=== PATIENT | male | born 1960 | race Caucasian/White ===

== ENCOUNTER 2022-11-09 09:00 | Outpatient (NON) | payer OTHER, SELFPAY | END 2022-11-09 09:01 | disposition home or self-care (01) | LOC: ANHLAB 11-10 07:45 | PROVIDERS: PCP Family Medicine; Visit Provider Internal Medicine Gastroenterology | DX: D12.0 Benign neoplasm of cecum (principal); D12.5 Benign neoplasm of sigmoid colon; Z80.0 Family history of malignant neoplasm of digestive organs | CPT/HCPCS: 88305 ==

== ENCOUNTER 2022-11-09 10:49 | Day surgery (SDC) | payer OTHER, SELFPAY ==
[2022-10-27 12:19] VITALS: BMI 28.2
--- NOTE | 2022-11-08 09:45 | P.PNAN_ITS ---
Anes - Initial Pre Proc Eval Procedure: Operation Date: 11/09/22 13:00 Proposed Procedures p Screening Colonoscopy - Derek Santiago MD Date/Time: 11/08/22 09:45 Surgeon: Derek Santiago MD Pre Op Diagnosis: HX Colon Polyps, Family HX Colon CA, Screening Patient Data Age: 62 Gender: M Height: 1.83 m Weight: 94.5 kg Allergies Allergy/AdvReac Type Severity Reaction Status Date / Time No Known Allergies Allergy Unknown Verified 11/09/22 11:53 Home Medications Medication Instructions Recorded Confirmed Type multivitamin with minerals (Men's 1 tablet PO DAILY 04/13/20 11/09/22 History One Daily tablet) ascorbate calcium (vitamin C) 500 500 mg PO DAILY 06/06/22 11/09/22 History mg tablet cholecalciferol (vitamin D3) 50 50 mcg PO DAILY 06/06/22 11/09/22 History mcg (2,000 unit) capsule vitamin B complex (B 1 tablet PO DAILY 06/06/22 11/09/22 History Complex-Vitamin B12 tablet) sodium,potassium,mag sulfates 17.5 See Rx Instructions PO .COMPLEX 09/18/22 11/09/22 Rx gram-3.13 gram-1.6 gram oral soln #354 mL (Suprep Bowel Prep Kit) sildenafil 50 mg tablet (Viagra) 50 mg PO DAILY PRN sexual activity 10/27/22 11/09/22 Rx #10 tabs Patient hx anesthesia problems: none Family hx anesthesia problems: none Results Review: All pre-operative results and documents have been reviewed as part of the pre- operative evaluation. [facility] Past Medical History Medical History Dyslipidemia Erectile dysfunction History of stroke Hypogonadism in male Stroke 04/2006 Surgical History Surgical History No pertinent past surgical history Family History Family History Father Family history of cardiovascular disease Carcinoma of colon Social History Social History Smoking packs per day: 1 Smoking cigarettes per day: 20.0 Years smoked: 30 Smoking pack-years: 30.00 Smoking status: Current every day smoker Tobacco type: cigarettes Alcohol intake: unknown Substance use type: does not use Living arrangements: alone Spiritual care concerns: No Anes - Eval Final PreProcedure Day of Procedure 11/08/22 09:45 Patient weight: overweight Heart: regular rate and rhythm Lungs: clear to auscultation Airway: Mallampati scale class II Neurological: alert and oriented Last oral intake: >/= 8 hours ASA classification: III Emergent: no Anesthetic plan: proceed Anesthesia type and monitoring: general GIVS and standard monitoring Results Review: All pre-operative results and documents have been reviewed as part of the pre- operative evaluation. Informed Consent: The patient's anesthetic plan and its attendant risks and benefits were discussed with the patient/family/POA. Questions were solicited and answers provided to the satisfaction of the patient/family/POA.
[2022-11-09 11:50] VITALS: BP 146/85; PULSE 75; RESP 20; TEMP 36.6; O2SAT 97
[2022-11-09] MEDS: LACTATED RINGERS 1,000 ML 150 ML IV CONT (12:04)
--- NOTE | 2022-11-09 12:45 | PM.HPGS ---
History of Present Illness History of Present Illness Consent: Risks, benefits, and alternatives have been discussed and questions answered. Patient agrees to proceed with procedure. Chief complaint: HX Colon Polyps, Family HX Colon CA, Screening Narrative: Babar Friend is a 62 year old male presents for screening colonoscopy. Patient has of personal history of colon polyps most recently 2017. He has had polyps on several previous occasions. Family history is significant his father and several paternal uncles have had colon cancer. Patient presents today for follow-up colonoscopy. He reports his current weight appetite bowel movements are normal. Review of Systems Review of Systems: Review of systems noncontributory. [facility] Past Medical History Medical History Dyslipidemia Erectile dysfunction History of stroke Hypogonadism in male Stroke 04/2006 Surgical History Surgical History No pertinent past surgical history Family History Family History Father Family history of cardiovascular disease Carcinoma of colon Social History Social History Smoking packs per day: 1 Smoking cigarettes per day: 20.0 Years smoked: 30 Smoking pack-years: 30.00 Smoking status: Current every day smoker Tobacco type: cigarettes Alcohol intake: unknown Substance use type: does not use Living arrangements: alone Spiritual care concerns: No Meds Home Medications and Allergies Home Medications Medication Instructions Recorded Confirmed Type multivitamin with minerals (Men's 1 tablet PO DAILY 04/13/20 11/09/22 History One Daily tablet) ascorbate calcium (vitamin C) 500 500 mg PO DAILY 06/06/22 11/09/22 History mg tablet cholecalciferol (vitamin D3) 50 50 mcg PO DAILY 06/06/22 11/09/22 History mcg (2,000 unit) capsule vitamin B complex (B 1 tablet PO DAILY 06/06/22 11/09/22 History Complex-Vitamin B12 tablet) sodium,potassium,mag sulfates 17.5 See Rx Instructions PO .COMPLEX 09/18/22 11/09/22 Rx gram-3.13 gram-1.6 gram oral soln #354 mL (Suprep Bowel Prep Kit) sildenafil 50 mg tablet (Viagra) 50 mg PO DAILY PRN sexual activity 10/27/22 11/09/22 Rx #10 tabs Allergies Allergy/AdvReac Type Severity Reaction Status Date / Time No Known Allergies Allergy Unknown Verified 11/09/22 11:53 Vital Signs Vital Signs - 24 hr 11/09/22 11:50 Temperature 97.9 F Pulse Rate 75 Respiratory Rate 20 Blood Pressure 146/85 H Pulse Oximetry 97 Oxygen Delivery Room Air Exam Narrative: Physical exam reveals patient to be alert. Vital signs stable. HEENT exam is unremarkable. Patient is anicteric. Lungs are clear to auscultation and percussion. Heart is without murmur or extra sounds. Abdomen bowel sounds are present soft nontender with no organomegaly. Digital external rectal exam is normal. Assessment and Plan Assessment and plan (1) History of colon polyps: Code(s): Z86.010 - Personal history of colonic polyps Status: Acute Assessment and Plan: Patient has had colon polyps on several previous colonoscopies. Plan for continued surveillance every 3-5 years. (2) Family history of colon cancer in father: Code(s): Z80.0 - Family history of malignant neoplasm of digestive organs Status: Acute Assessment and Plan: Patient's father had colon cancer as did several paternal uncles. Plan for surveillance colonoscopy at least every 5 years.
[2022-11-09 13:22] VITALS: BP 99/87; PULSE 68; RESP 16; O2SAT 96
[2022-11-09 13:32] VITALS: BP 110/75; PULSE 68; RESP 16; O2SAT 97
--- NOTE | 2022-11-09 13:33 | SUR.PHASEII ---
PT AWAKE AND ALERT. DRINKING WATER. DENIES PAIN.
[2022-11-09 13:42] VITALS: BP 114/74; PULSE 67; RESP 16; O2SAT 97
--- NOTE | 2022-11-09 14:28 | WPDANESPN ---
Anes - Prog Note Post-Op Date/Time: 11/09/22 14:28 Cardiovascular status: normal Respiratory status: normal Airway patency: baseline Mental status: baseline Post-Op hydration status: normal Vital Signs: Last Vital Signs Temp 36.6 C 11/09/22 11:50 Pulse 67 11/09/22 13:42 Resp 16 11/09/22 13:42 BP 114/74 11/09/22 13:42 Pulse Ox 97 11/09/22 13:42 O2 Del Method Room Air 11/09/22 13:42 Pain Score (VAS): 0 I/O: Intake & Output 11/08/22 11/09/22 11/09/22 23:59 07:59 15:59 Intake Total 750 Balance 750 Post-procedural complaints: none Patient Feedback: Patient satisfied with anesthetic care. Other Findings: Patient vital signs back to baseline. Patient denies nausea and vomiting. Patient's pain under control. Patient OK for discharge.
== END 2022-11-09 14:00 | disposition home or self-care (01) ==
PROVIDERS: PCP Family Medicine; Visit Provider Internal Medicine Gastroenterology
PROC: 0DJD8ZZ Inspection of Lower Intestinal Tract, Via Natural or Artificial Opening Endoscopic (ICD-10-PCS; CPT 45378; principal; 2022-11-09 13:00)
DX: Z86.010 Personal history of colon polyps (principal)
CPT/HCPCS: 45385

== ENCOUNTER 2023-08-09 07:00 | Outpatient (NON) | payer OTHER, SELFPAY | END 2023-08-09 07:01 | disposition home or self-care (01) | PROVIDERS: PCP Family Medicine; Visit Provider Internal Medicine Gastroenterology | DX: D12.4 Benign neoplasm of descending colon (principal); K63.5 Polyp of colon | CPT/HCPCS: 88305 ==

== ENCOUNTER 2023-08-09 09:34 | Day surgery (SDC) | payer OTHER, SELFPAY ==
[2023-07-24 13:34] VITALS: BMI 27.8
--- NOTE | 2023-08-09 08:23 | P.PNAN_ITS ---
Anes - Initial Pre Proc Eval Procedure: Operation Date: 08/09/23 13:30 Proposed Procedures p Colonoscopy - Derek Santiago MD Date/Time: 08/09/23 08:23 Surgeon: Derek Santiago MD Pre Op Diagnosis: Family History of Colon Cancer, HX of Colon Polyps Patient Data Age: 63 Gender: M Height: 1.83 m Weight: 93 kg Allergies Allergy/AdvReac Type Severity Reaction Status Date / Time No Known Allergies Allergy Unknown Verified 08/09/23 12:20 Home Medications Medication Instructions Recorded Confirmed Type multivitamin with minerals (Men's 1 tablet PO DAILY 04/13/20 08/09/23 History One Daily tablet) ascorbate calcium (vitamin C) 500 500 mg PO DAILY 06/06/22 08/09/23 History mg tablet cholecalciferol (vitamin D3) 50 50 mcg PO DAILY 06/06/22 08/09/23 History mcg (2,000 unit) capsule vitamin B complex (B 1 tablet PO DAILY 06/06/22 08/09/23 History Complex-Vitamin B12 tablet) sildenafil 50 mg tablet (Viagra) 50 mg PO DAILY PRN sexual activity 06/18/23 08/09/23 Rx #10 tabs Patient hx anesthesia problems: none Family hx anesthesia problems: none Results Review: All pre-operative results and documents have been reviewed as part of the pre-operative evaluation. [facility] Past Medical History Medical History Dyslipidemia Erectile dysfunction History of stroke (~04/2006) Hypogonadism in male Surgical History Surgical History History of tooth extraction Family History Family History Father Family history of cardiovascular disease Carcinoma of colon Social History Social History Smoking packs per day: 1 Smoking cigarettes per day: 20.0 Years smoked: 40 Smoking pack-years: 40.00 Smoking status: Heavy tobacco smoker Tobacco type: cigarettes Alcohol intake: former Substance use: never Substance use type: does not use Lack of Transportation: No Lack of Food: Never True Current Housing: I Have Housing Concerned About Future Housing: No Difficulty Paying Gas/Electric Bills: No Difficulty Paying for Meds: No Currently Unemployed: No Education: Bachelor's Degree Difficulty w/ Childcare or Family Care: No Living arrangements: alone Occupation/Education: occupation Gender identity (if verbalized by the patient): Male Spiritual care concerns: No Agree to blood products: Yes Anes - Eval Final PreProcedure Day of Procedure 08/09/23 08:23 Patient weight: overweight Heart: regular rate and rhythm Lungs: clear to auscultation Airway: Mallampati scale class II Neurological: alert and oriented Last oral intake: >/= 8 hours ASA classification: III Emergent: no Anesthetic plan: proceed Anesthesia type and monitoring: general GIVS and standard monitoring Results Review: All pre-operative results and documents have been reviewed as part of the pre- operative evaluation. Informed Consent: The patient's anesthetic plan and its attendant risks and benefits were discussed with the patient/family/POA. Questions were solicited and answers provided to the satisfaction of the patient/family/PO
[2023-08-09 12:22] VITALS: BP 121/79; PULSE 85; RESP 18; TEMP 36.9; O2SAT 99; BMI 26.4
[2023-08-09] MEDS: LACTATED RINGERS 1,000 ML 150 ML IV CONT (12:27)
--- NOTE | 2023-08-09 13:04 | PM.HPGS ---
History of Present Illness History of Present Illness Consent: Risks, benefits, and alternatives have been discussed and questions answered. Patient agrees to proceed with procedure. Chief complaint: Family History of Colon Cancer, HX of Colon Polyps Narrative: Babar Friend is a 63 year old male Presents for colonoscopy. Patient has a history of recurrent polyps in the past. Patient found to have a rather large cecal colon polyp removed colon . patient presents today for follow-up to ensure complete resection of this polyp. Patient reports that his current weight appetite and bowel movements are normal. He denies abdominal pain. He has had no bleeding. History is significant father and 2 uncles have had colon cancer. Review of Systems Review of Systems: Review of systems is noncontributory. [facility] Past Medical History Medical History Dyslipidemia Erectile dysfunction History of stroke (~04/2006) Hypogonadism in male Surgical History Surgical History History of tooth extraction Family History Family History Father Family history of cardiovascular disease Carcinoma of colon Social History Social History Smoking packs per day: 1 Smoking cigarettes per day: 20.0 Years smoked: 40 Smoking pack-years: 40.00 Smoking status: Heavy tobacco smoker Tobacco type: cigarettes Alcohol intake: former Substance use: never Substance use type: does not use Lack of Transportation: No Lack of Food: Never True Current Housing: I Have Housing Concerned About Future Housing: No Difficulty Paying Gas/Electric Bills: No Difficulty Paying for Meds: No Currently Unemployed: No Education: Bachelor's Degree Difficulty w/ Childcare or Family Care: No Living arrangements: alone Occupation/Education: occupation Gender identity (if verbalized by the patient): Male Spiritual care concerns: No Agree to blood products: Yes Meds Home Medications and Allergies Home Medications Medication Instructions Recorded Confirmed Type multivitamin with minerals (Men's 1 tablet PO DAILY 04/13/20 08/09/23 History One Daily tablet) ascorbate calcium (vitamin C) 500 500 mg PO DAILY 06/06/22 08/09/23 History mg tablet cholecalciferol (vitamin D3) 50 50 mcg PO DAILY 06/06/22 08/09/23 History mcg (2,000 unit) capsule vitamin B complex (B 1 tablet PO DAILY 06/06/22 08/09/23 History Complex-Vitamin B12 tablet) sildenafil 50 mg tablet (Viagra) 50 mg PO DAILY PRN sexual activity 06/18/23 08/09/23 Rx #10 tabs Allergies Allergy/AdvReac Type Severity Reaction Status Date / Time No Known Allergies Allergy Unknown Verified 08/09/23 12:20 Vital Signs Vital Signs - 24 hr 08/09/23 12:22 Temperature 98.4 F Pulse Rate 85 Respiratory Rate 18 Blood Pressure 121/79 Pulse Oximetry 99 Oxygen Delivery Room Air Exam Narrative: Physical exam reveals patient to be alert. Vital signs stable. HEENT exam is unremarkable. Patient is anicteric. Lungs are clear to auscultation percussion. Heart is without murmur or extra sounds. Abdomen bowel sounds are present soft nontender with no organomegaly. Digital external rectal exam is normal. Assessment and Plan Assessment and plan (1) History of colon polyps: Code(s): Z86.010 - Personal history of colonic polyps Status: Acute Assessment and Plan: Patient history recurrent polyps multiple occasions. Most recent colonoscopy showed a cecal polyp that was sessile and very large. Plan for follow-up colonoscopy at this time to ensure it was completely removed. Further ends including frequent follow-up are advised subsequently. (2) Family history of colon cancer in father:
[2023-08-09 14:27] VITALS: BP 134/81; PULSE 75; RESP 20; O2SAT 94
[2023-08-09 14:37] VITALS: BP 115/75; PULSE 77; RESP 18; O2SAT 97
[2023-08-09 14:47] VITALS: BP 117/74; PULSE 73; RESP 16; O2SAT 97
--- NOTE | 2023-08-09 14:58 | WPDANESPN ---
Anes - Prog Note Post-Op Date/Time: 08/09/23 14:58 Cardiovascular status: normal Respiratory status: normal Airway patency: baseline Mental status: baseline Post-Op hydration status: normal Vital Signs: Last Vital Signs Temp 36.9 C 08/09/23 12:22 Pulse 73 08/09/23 14:47 Resp 16 08/09/23 14:47 BP 117/74 08/09/23 14:47 Pulse Ox 97 08/09/23 14:47 O2 Del Method Room Air 08/09/23 14:47 Pain Score (VAS): 0 I/O: Intake & Output 08/08/23 08/09/23 08/09/23 23:59 07:59 15:59 Intake Total 900 Balance 900 Post-procedural complaints: none Patient Feedback: Patient satisfied with anesthetic care. Other Findings: Patient vital signs back to baseline. Patient denies nausea and vomiting. Patient's pain under control. Patient OK for discharge.
== END 2023-08-09 15:00 | disposition home or self-care (01) ==
PROVIDERS: PCP Family Medicine; Visit Provider Internal Medicine Gastroenterology
PROC: 0DJD8ZZ Inspection of Lower Intestinal Tract, Via Natural or Artificial Opening Endoscopic (ICD-10-PCS; CPT 45378; principal; 2023-08-09 13:30)
DX: Z86.010 Personal history of colon polyps (principal); D12.4 Benign neoplasm of descending colon; D12.5 Benign neoplasm of sigmoid colon; K57.30 Diverticulosis of large intestine without perforation or abscess without bleeding; K64.8 Other hemorrhoids
CPT/HCPCS: 45385

== ENCOUNTER 2025-09-04 01:26 | Day surgery (SDC) | payer BC, SELFPAY ==
[2025-08-25 14:19] VITALS: BMI 27.3
--- OUTSIDE RECORDS SUMMARY | 2025-09-04 01:29 | XMS_ITS | Clinical Summary ---
Author Organization [facility] Address [address] [address] Phone Care Team Providers Care Producer Arborist Manager Name Role Phone Mayur Orellana MD Primary Care Provider [phone] Allergies No known active allergies Medications polyethylene glycol (MIRALAX) Powder Use entire 255g bottle with 64oz of clear liquid as directed for colonoscopy prep. 255 g 7 Active simvastatin (ZOCOR) 10 MG Tablet Take 1 Tab by mouth nightly. 3 7 Active Multiple Vitamins-Minera ls (MENS 50+ MULTI VITAMIN/MIN) Tablet Take 1 Tab by mouth daily. Active Aspirin 81 MG Tablet Take 81 mg by mouth daily. Active Family History Medical History Relation Name Comments Colon Cancer Father Relation Name Status Comments Father Social History Tobacco Use Types Packs/Day Years Used Date Smoking Tobacco: Every Day Smokeless Tobacco: Never Alcohol Use Standard Drinks/Week Comments Yes 3 (1 standard drink = 0.6 oz pur e alcohol) Sex and Gender Information Value Date Recorded Sex Assigned at Not on file Legal Sex Male 9:46 PM CDT Gender Identity Not on file Sexual Orientation Not on file Plan of Treatment Health Maintenance Due Date Last Done Comments Hepatitis C Virus (HCV) Screening 1960 TdaP Immunization 1960 Cologuard 2005 Immunochemical Fecal Occult Blood 2005 Pneumococcal Immunization (5 0+ years) (1 of 1 - PCV) 2010 Zoster Immunization (1 of 2) 2010 Colonoscopy 09/27/2020 09/27/2017 Colorectal Cancer Screening 09/27/2020 Influenza Immunization (#1) 2025 SARS-COV-2 Immunization ( - season) 2025 Respiratory Syncytial Virus (RSV) Immunization (Adult) (1 - 1-dose 75+ series) 2035 Hepatitis B Immunization Aged Out No longer eligible based on patient's age to complete this topic Human Papillomavirus (HPV) Immunization Aged Out No longer eligible b ased on patient's age to complete this topic Meningococcal Immunization (ACWY) Aged Out No longer eligible based on patient's age to complete this topic Rotavirus Immunization Aged Out No lo nger eligible based on patient's age to complete this topic Procedures Procedure Name Priority Date/Time Associated Diagnosis Comments COLONOSCOPY Routine 09/27/2017 from Last 3 Months or Most Recently Relevant to Health Maintenance Results * COLONOSCOPY (09/27/2017) Derek Moreno DO PROCEDURE/MINOR SURGICAL ORDERA BLES Final Result from Last 3 Months or Most Recently Relevant to Health Maintenance Care Teams Producer Arborist Manager Relationship Specialty Start Date End Date Mayur Orellana MD [address] [place] [address] PCP - General Family Medicine 03/21/17
[2025-09-04 12:59] VITALS: BP 111/70; PULSE 77; RESP 18; TEMP 36.2; O2SAT 97; BMI 26.2
[2025-09-04] MEDS: LACTATED RINGERS 1,000 ML 150 ML IV CONT (13:08)
--- NOTE | 2025-09-04 13:45 | P.PNAN_ITS ---
Anes - Initial Pre Proc Eval Procedure: Operation Date: 09/04/25 14:00 Proposed Procedures p Screening Colonoscopy - Fabrizio Castro MD Date/Time: 09/04/25 13:45 Surgeon: Fabrizio Castro MD Pre Op Diagnosis: Family history of malignant neoplasm of digestive Patient Data Age: 65 Gender: M Height: 1.83 m Weight: 87.7 kg Last Vital Signs Temp 36.2 C L 09/04/25 12:59 Pulse 77 09/04/25 12:59 Resp 18 09/04/25 12:59 BP 111/70 09/04/25 12:59 Pulse Ox 97 09/04/25 12:59 O2 Del Method Room Air 09/04/25 12:59 Allergies Allergy/AdvReac Type Severity Reaction Status Date / Time No Known Allergies Allergy Unknown Verified 09/04/25 12:58 Home Medications ?Medication ?Instructions ?Recorded ?Confirmed ?Type multivitamin with minerals (Men's 1 tablet PO DAILY 09/04/25 History One Daily tablet) ascorbate calcium (vitamin C) 500 500 mg PO DAILY 07/2009/04/25 History mg tablet cholecalciferol (vitamin D3) 50 50 mcg PO DAILY 09/04/25 History mcg (2,000 unit) capsule vitamin B complex (B 1 tablet PO DAILY 06/06/22 1 11/04/24 History Complex-Vitamin B12 tablet) sildenafil 50 mg tablet (Viagra) 50 mg PO DAILY PRN se xual activity 06/18/23 08/25/25 Rx #10 tabs aspirin 81 mg capsule 81 mg PO DAILY 08/25/2505/22 History Patient hx anesthesia problems: none Family hx anesthesia problems: none Results Review: All pre-operative results and documents have been reviewed as part of the pre- operative evaluation. [facility] Past Medical History Medical History Erectile dysfunction History of stroke (~04/2006) Dyslipidemia Hypogonadism in male Surgical History Surgical History History of tooth extraction Family History Family History Father Family history of cardiovascular disease Carcinoma of colon Social History Social History Smoking packs per day: 1 Smoking cigarettes per day: 20.0 Years smoked: 20 Smoking pack-years: 20.00 Smoking status: Current every day smoker Tobacco type: cigarettes Alcohol intake: never Substance use: never Substance use type: does not use Lack of Transportation: No Lack of Food: Never True Current Housing: I Have Housing Concerned About Future Housing: No Difficulty Paying Gas/Electric Bills: No Difficulty Paying for Meds: No Currently Unemployed: No Education: Bachelor's Degree Difficulty w/ Childcare or Family Care: No Living arrangements: with family Occupation/Education: occupation Gender identity (if verbalized by the patient): Male Spiritual care concerns: No Agree to blood products: Yes Anes - Eval Final PreProcedure Day of Procedure 09/04/25 13:45 Patient weight: overweight Heart: regular rate and rhythm Lungs: decreased breath sounds Airway: Mallampati scale class III Neurological: alert and oriented Last oral intake: >/= 8 hours ASA classification: III Emergent: no Anesthetic plan: proceed Anesthesia type and monitoring: general GIVS and standard monitoring Results Review: All pre-operative results and documents have been reviewed as part of the pre-operative evaluation. Informed Consent: The patient's anesthetic plan and its attendant risks and benefits were discussed with the patient/family/POA. Questions were solicited and answers provided to the satisfaction of the patient/family/POA.
--- NOTE | 2025-09-04 14:29 | PM.IMHP ---
H&P: HPI History of Present Illness Date/Time: 09/04/25 14:29 Chief Complaint: Family history of colon cancer Narrative: This patient has family history of colorectal cancer. His father had colon cancer. His last colonoscopy was 3 years ago. Review of Systems Review of Systems: All systems reviewed & are unremarkable except as noted in HPI and below PMFSH Past Medical History Medical History Erectile dysfunction History of stroke (~04/2006) Dyslipidemia Hypogonadism in male Surgical History Surgical History History of tooth extraction Family History Family History Father Family history of cardiovascular disease Carcinoma of colon Social History Social History Smoking packs per day: 1 Smoking cigarettes per day: 20.0 Years smoked: 20 Smoking pack-years: 20.00 Smoking status: Current every day smoker Tobacco type: cigarettes Alcohol intake: never Substance use: never Substance use type: does not use Lack of Transportation: No Lack of Food: Never True Current Housing: I Have Housing Concerned About Future Housing: No Difficulty Paying Gas/Electric Bills: No Difficulty Paying for Meds: No Currently Unemployed: No Education: Bachelor's Degree Difficulty w/ Childcare or Family Care: No Living arrangements: with family Occupation/Education: occupation Gender identity (if verbalized by the patient): Male Spiritual care concerns: No Agree to blood products: Yes Meds Home Medications and Allergies Home Medications ?Medication ?Instructions ?Recorded ?Confirmed ?Type multivitamin with minerals (Men's 1 tablet PO DAILY 04/13/20 09/04/25 History One Daily tablet) ascorbate calcium (vitamin C) 500 500 mg PO DAILY 06/06/22 09/04/25 History mg tablet cholecalciferol (vitamin D3) 50 50 mcg PO DAILY 06/06/22 09/04/25 History mcg (2,000 unit) capsule vitamin B complex (B 1 tablet PO DAILY 06/06/22 09/04/25 History Complex-Vitamin B12 tablet) sildenafil 50 mg tablet (Viagra) 50 mg PO DAILY PRN sexual activity 06/18/23 08/25/25 Rx #10 tabs aspirin 81 mg capsule 81 mg PO DAILY 08/25/25 09/04/25 History Allergies Allergy/AdvReac Type Severity Reaction Status Date / Time No Known Allergies Allergy Unknown Verified 09/04/25 12:58 Vital Signs Vital Signs - 24 hr 09/04/25 12:59 Temperature 97.1 F L Pulse Rate 77 Respiratory Rate 18 Blood Pressure 111/70 Pulse Oximetry 97 Oxygen Delivery Room Air Exam Const: General: cooperative and healthy appearing Resp: Effort & Inspection: normal respiratory effort and able to speak in complete sentences Auscultation: clear to auscultation bilaterally Cardio: Rate: regular rate Rhythm: regular rhythm GI: Inspection: normal to inspection GI Palp: No No hepatosplenomegaly present Auscultation: normal bowel sounds Rectal Exam: deferred Skin: General skin exam: normal color Psych: Appearance: grossly normal Mental Status: mental status grossly normal Assessment and Plan Assessment and plan (1) History of colon polyps: Code(s): Z86.010 - Personal history of colon polyps Status: Acute Assessment and Plan: The patient is deemed a good candidate for the procedure. Consent signed. Will proceed. (2) Family history of colon cancer in father: Code(s): Z80.0 - Family history of malignant neoplasm of digestive organs Status: Acute
[2025-09-04 14:55] VITALS: BP 108/71; PULSE 77; RESP 25; O2SAT 95
[2025-09-04 15:05] VITALS: BP 112/72; PULSE 77; RESP 23; O2SAT 97
[2025-09-04 15:15] VITALS: BP 118/80; PULSE 66; RESP 22; O2SAT 99
== END 2025-09-04 15:27 | disposition home or self-care (01) ==
PROVIDERS: PCP Family Medicine; Referring Provider Internal Medicine Gastroenterology; Visit Provider Internal Medicine Gastroenterology
PROC: 0DJD8ZZ Inspection of Lower Intestinal Tract, Via Natural or Artificial Opening Endoscopic (ICD-10-PCS; CPT 45378; principal; 2025-09-04 14:00)
DX: Z12.11 Encounter for screening for malignant neoplasm of colon (principal); K64.8 Other hemorrhoids; K57.30 Diverticulosis of large intestine without perforation or abscess without bleeding; N52.9 Male erectile dysfunction, unspecified; E29.1 Testicular hypofunction; F17.210 Nicotine dependence, cigarettes, uncomplicated; Z79.82 Long term (current) use of aspirin; Z98.890 Other specified postprocedural states; Z86.0100 Personal history of colon polyps, unspecified; Z86.73 Personal history of transient ischemic attack (TIA), and cerebral infarction without residual deficits; Z80.0 Family history of malignant neoplasm of digestive organs; Z82.49 Family history of ischemic heart disease and other diseases of the circulatory system
CPT/HCPCS: 45378; J2003; J2704; J7120